=== PATIENT | male | born 1985 | race Caucasian/White ===

== ENCOUNTER 2016-12-18 13:28 | Emergency (ER) | payer MEDICARE, OTHER, MEDICAID ==
[2016-12-18] MEDS ORDERED: Sodium Chloride 0.9% 10 ML Syringe FLUSH PRN (13:39)
[2016-12-18] MEDS ORDERED: Sodium Chloride 0.9% 1,000 ML IV ONE ×2 (13:40→15:03)
--- NOTE | 2016-12-18 14:07 | EDM.PDOC ---
ED HPI GENERAL MEDICAL PROBLEM - General Chief Complaint: General Stated Complaint: Stroke Symptoms Time Seen by Provider: 12/18/16 13:38 Source of Information: Reports: Other (Patient brought in by someone moving into same building as were patient resides. Person recalls Aron laying on floor this past , two days ago. Wouldn't get up at that time. Person noticed Aron still on floor today, brought Aron in via private vehicle. No further information available. Person says he really does not know Aron or interact with him in general. ) History Limitations: Reports: Altered mental status, Intoxication (suspected drug use) - History of Present Illness INITIAL COMMENTS - FREE TEXT/NARRATIVE: Patient brought in by someone who is moving into same building as were Aron apparently resides. Says Aron was laying down in same place two days ago and apparently has not moved since then. No further information given. Aron is awake, knows he is at hospital. Otherwise patient appears to be under influence of drugs and has an altered mental status. Denies using drugs. When asked if he is having any pain he says his legs hurt. Denies any other pain. He tries to answer questions but otherwise is minimally communicative. Cannot give any additional history as to what he was doing this past week or how long he was on the floor. Patient evaluated in our ER in Oct. At that time admitted to using heroin as well as meth. Has history of MS diagnosis. Unable to verify current medications. No additional information available. Review of chart shows that patient needs to self-cath due to urinary issues related to MS. He is also on chronic narcotic medications for pain issues in addition to chronic illicit drug use. - Related Data Allergies Allergy/AdvReac Type Severity Reaction Status Date / Time Latex, Natural Rubber Allergy Rash Verified 01/20/14 15:25 venom-honey bee Allergy Anaphylactic Verified 01/20/14 15:21 [bee venom (honey bee)] Shock Home Meds: Home Meds Calcium Carbonate [Tums] 1,000 mg PO DAILY 10/25/16 [History] Citalopram Hydrobromide [Citalopram HBr] 20 mg PO DAILY 10/25/16 [History] Gabapentin [Neurontin] 800 mg PO TID 10/25/16 [History] Oxybutynin 5 mg PO BID 10/25/16 [History] oxyCODONE HCl [Oxycodone HCl] 20 mg PO TID 10/25/16 [History] Past Medical History HEENT History: Reports: Allergic rhinitis, Impaired vision, Other (see below). Denies: Hard of hearing, Retinal detachment Other HEENT History: Allergic rhinitis as a child, currently allergic to bee stings, wears glasses Cardiovascular History: Reports: None. Denies: Afib, Aneurysm, Arrhythmia, Blood clots/VTE/DVT, CAD, Heart Failure, Heart murmur, Hypertension, PVD, Syncope Respiratory History: Reports: None. Denies: Asthma, COPD, Intubation, previous , PE, Pneumothorax Gastrointestinal History: Reports: Chronic constipation, Gastritis, GERD, Other (see below). Denies: Celiac disease, Cholelithiasis, Fecal incontinence, GI bleed, Hepatitis, Hiatal hernia, Inflammatory bowel disease, Irritable bowel syndrome, Jaundice, Pancreatitis Other Gastrointestinal History: Chronic constipation secondary to chronic narcotic use, mild esophagitis, gastritis, duodenitis by EGD Genitourinary History: Reports: Retention, urinary, Urinary incontinence, UTI, recurrent, Other (see below). Denies: BPH, Chronic renal insuffiency, Renal calculus Other Genitourinary History: Chronic urinary retention requiring daily catheterizations secondary to his MS Musculoskeletal History: Reports: Arthritis, Back pain, chronic, Neck pain, chronic, Osteoarthritis, Other (see below). Denies: Amputation, Fracture, Gout , RA, SLE Other Musculoskeletal History: Chronic pain syndrome with chronic arthritis requiring chronic narcotic use, L1 vertebral body compression fracture, history of questionable left radial styloid fracture on 04/17/13 however negative x-ray report Neurological History: Reports: MS, Neuropathy, peripheral. Denies: Cerebral aneurysms, CVA, Headaches, chronic, Head trauma, Migraines, Seizure, TIA, Vertigo Psychiatric History: Reports: Addiction, Anxiety, Depression, Psych Hospitalization(s), Suicide attempt, Suicidal ideation, Other (see below). Denies: Abuse, victim of Other Psychiatric History: Chronic anxiety and depression disorder including suicidal attempt with overdose on 03/22/09 with previous multiple inpatient treatments for his anxiety depression disorder including last hospitalization at [facility] in [place] in 2013, chronic narcotic use (currently OxyContin) with additional illicit drug use and tobacco use Hematologic History: Reports: None. Denies: Anemia, Blood transfusion(s), Iron deficiency Other Hematologic History: plasma infusion 2013 Immunologic History: Reports: None. Denies: AIDS, HIV, SLE Oncologic (Cancer) History: Reports: None. Denies: Basal cell carcinoma, Hodgkin's Lymphoma, Leukemia, Malignant melanoma, Non-Hodgkin's Lymphoma, Squamous cell carcinoma Dermatologic History: Reports: None. Denies: Eczema, Psoriasis - Infectious Disease History Infectious Disease History: Reports: Chicken pox. Denies: C-difficile, Measles , Meningitis, Mononucleosis, MRSA, Mumps, Pertussis (whooping cough), Rheumatic Fever, Rubella, Scarlet fever, Shingles, TB, VRE - Past Surgical History Head Surgeries/Procedures: Reports: None HEENT Surgical History: Reports: Adenoidectomy, Myringotomy w tube(s), Oral surgery, Tonsillectomy, Other (see below). Denies: Cataract surgery, Eye surgery, Naso-sinus surgery Other HEENT Surgeries/Procedures: Tonsillectomy and adenoidectomy at about age 13-14, upper teeth extraction with current bridge him of PE tubes at about age 4 Cardiovascular Surgical History: Reports: None. Denies: Varicose, Vascular surgery Respiratory Surgical History: Reports: None. Denies: Lung Biopsies, Thoracentesis GI Surgical History: Reports: Appendectomy, EGD, Other (see below). Denies: Cholecystectomy, Colonoscopy, Hernia, abdominal, Hernia, inguinal, Hernia repair /other Other GI Surgeries/Procedures: Decision a benign lymph node from the right inguinal region on 10/15/10, appendectomy in 1997, EGD on 10/01/14 Male Surgical History: Reports: Circumcision, Other (see below). Denies: Vasectomy Other Male Surgeries/Procedures: Circumcision as an infant Endocrine Surgical History: Reports: None Neurological Surgical History: Reports: None. Denies: C-Spine, Discectomy, Laminectomy, Lumbar spine, Spinal fusion, Vertebroplasty Musculoskeletal Surgical History: Reports: None. Denies: Arthroscopic knee, Arthroscopic procedure, Carpal tunnel, Ganglion cyst, Joint replacement, ORIF, Shoulder surgery Oncologic Surgical History: Reports: None Dermatological Surgical History: Reports: None - Past Imaging History Past Imaging History: Reports: CAT scan (Abdomen and pelvis on 01/20/14), MRI ( Brain and C-spine on 01/29/14) Social & Family History - Tobacco Use Smoking Status *Q: Current Every Day Smoker Years of Tobacco use: 14 Packs/Tins Daily: 0.3 (Started chewing tobacco at age 16 with current use of 1/ 3 can per day) Used Tobacco, but Quit: No Second Hand Smoke Exposure: Yes - Caffeine Use Caffeine Use: Reports: Coffee (3 cups of coffee per day), Soda (5 sodas per day) . Denies: Energy drinks, Tea - Alcohol Use Days Per Week of Alcohol Use: 0 (DWI in 2008 however denies alcohol treatment or previous abuse) Number of Drinks Per Day: 2 (Usually mixed drinks about every 3 months) Total Drinks Per Week: 0 - Recreational Drug Use Recreational Drug Use: Yes Drug Use in Last 12 Months: Yes Recreational Drug Type: Reports: Amphetamines (Speed), Heroin (Regular heroin use since 2009 with last snorting yesterday), LSD (Acid) (X1 in 2011 when his left him), Marijuana/Hashish (Weekly marijuana use since age 16), Methamphetamine (Regular methamphetamine inhalations since 2009 with last use 2 weeks ago). 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 No: lymphadenopathy (L), lymphadenopathy (R) Respiratory/Chest: no respiratory distress, lungs clear, normal breath sounds, no accessory muscle use, chest non-tender Cardiovascular: no murmur, tachycardia, other (unble to find pulse right lower leg) Peripheral Pulses: 0: posterior tibial (R), dorsalis pedis (R), 1+: dorsalis pedis (L), 2+: radial (L), radial (R) GI/Abdominal: soft, non tender, no distention, abnormal bowel sounds: ( diminished) (Male) Exam: Other (unremarkable external inspection) Rectal (Males) Exam: Deferred Back Exam: other (No bruising/pain with palpation or skin breakdown noted) Extremities: other (both legs tender with palpation. Right leg cold, firmer to touch than left. Both had areas in popliteal fossas that were red (confluent), right side desquamated. No active draining noted. ) Neurological: inattentive, slow to respond, other (unable to move toes/foot/leg on right. Able to move left leg/toes. Equal strength and movement upper extremities. ) Psychiatric: flat affect Skin Exam: Cool, Cyanosis (right lower extremity), Erythema (behind both knees) , Other (scattered round scabs noted on exam) EKG INTERPRETATION EKG Date: 12/18/16 Time: 13:57 Rhythm: other (Sinus Tach) Rate (beats/min): 124 [place]: RAD-right axis deviation P-wave: present QRS: normal ST-T: other (slight elevation V1/V2) QT: normal Comparison: other: (EKG from early Febrary shows NSR with rate in 80s) Course - Vital Signs Last Recorded V/S: Last Vital Signs Temp 36.7 C 12/18/16 13:30 Pulse 126 H 12/18/16 14:40 Resp 22 H 12/18/16 14:40 BP 126/77 12/18/16 14:40 Pulse Ox 98 12/18/16 14:40 - Orders/Labs/Meds Labs: Laboratory Tests 12/18/16 12/18/16 12/18/16 Range/Units 13:50 14:00 14:10 WBC 25.2 H (4.0-10.2) K/uL RBC 6.44 H (4.33-5.41) M/uL Hgb 18.9 H* D (13.1-16.8) g/dL Hct 56.2 H (39.0-49.0) % MCV 87.3 (84.0-98.0) fL MCH 29.3 (28.2-33.3) pg MCHC 33.6 (31.7-36.0) g/dL RDW 15.6 H (11.2-14.1) % Plt Count 307 (150-350) K/uL Neut % (Auto) 79.1 (45.0-80.0) % Lymph % (Auto) 11.2 (10.0-50.0) % Clayton % (Auto) 9.4 (2.0-14.0) % Eos % (Auto) 0.1 (0.0-5.0) % Baso % (Auto) 0.2 (0.0-2.0) % Neut # (Auto) 19.96 H (1.40-7.00) K/uL Lymph # (Auto) 2.83 (0.50-3.50) K/uL Clayton # (Auto) 2.36 H (0.00-1.00) K/uL Eos # (Auto) 0.02 (0.00-0.50) K/uL Baso # (Auto) 0.04 (0.00-0.20) K/uL D-Dimer, Quantitative (0-400) ng/mL Sodium (136-145) mmol/L Potassium (3.5-5.1) mmol/L Chloride (98-107) mmol/L Carbon Dioxide (21.0-32.0) mmol/L BUN (7-18) mg/dL Creatinine (0.51-1.17) mg/dL Est Cr Clr Drug Dosing Estimated GFR (MDRD) mL/min Glucose (74-106) mg/dL Lactic Acid (0.4-2.0) mmol/L Calcium (8.5-10.1) mg/dL Total Bilirubin (0.2-1.0) mg/dL AST (15-37) U/L ALT (12-78) U/L Alkaline Phosphatase (46-116) IU/L Creatine Kinase (26-308) U/L Troponin I (0.000-0.056) ng/mL Total Protein (6.4-8.2) g/dL Albumin (3.4-5.0) g/dL Specimen Type Urincath Urine Color Brown Urine Appearance Cloudy Urine pH 6.0 (5.0-9.0) Ur Specific Endeavor >= 1.030 (1.005-1.030) Urine Protein >=300 H (NEGATIVE) mg/dL Urine Glucose (UA) Negative (NEGATIVE) mg/dL Urine Ketones Negative (NEGATIVE) mg/dL Urine Occult Blood Large H (NEGATIVE) Urine Nitrite Positive H (NEGATIVE) Urine Bilirubin Small H (NEGATIVE) Urine Urobilinogen 1.0 (0.2-1.0) E.U./dL Ur Leukocyte Esterase Negative (NEGATIVE) Urine RBC 0-5 /HPF Urine WBC 0-5 /HPF Ur Epithelial Cells Rare /LPF Urine Bacteria Rare (NONE TO FEW) /HPF Urine Opiates Screen Negative (NEGATIVE) Urine Methadone Screen Negative (NEGATIVE) U Acetaminophen Screen Negative (NEGATIVE) Ur Barbiturates Screen Negative (NEGATIVE) Ur Tricyclics Screen Negative (NEGATIVE) Ur Phencyclidine Scrn Negative (NEGATIVE) Ur Amphetamine Screen Positive H (NEGATIVE) U Methamphetamines Scrn Positive H (NEGATIVE) U Benzodiazepines Scrn Positive H (NEGATIVE) U Cocaine Metab Screen Negative (NEGATIVE) U Marijuana (THC) Screen Positive H (NEGATIVE) Ethyl Alcohol (0.000-0.080) g/dL 12/18/16 12/18/16 12/18/16 Range/Units 14:10 14:10 14:10 WBC (4.0-10.2) K/uL RBC (4.33-5.41) M/uL Hgb (13.1-16.8) g/dL Hct (39.0-49.0) % MCV (84.0-98.0) fL MCH (28.2-33.3) pg MCHC (31.7-36.0) g/dL RDW (11.2-14.1) % Plt Count (150-350) K/uL Neut % (Auto) (45.0-80.0) % Lymph % (Auto) (10.0-50.0) % Clayton % (Auto) (2.0-14.0) % Eos % (Auto) (0.0-5.0) % Baso % (Auto) (0.0-2.0) % Neut # (Auto) (1.40-7.00) K/uL Lymph # (Auto) (0.50-3.50) K/uL Clayton # (Auto) (0.00-1.00) K/uL Eos # (Auto) (0.00-0.50) K/uL Baso # (Auto) (0.00-0.20) K/uL D-Dimer, Quantitative (0-400) ng/mL Sodium 136 (136-145) mmol/L Potassium 6.0 H* D (3.5-5.1) mmol/L Chloride 97 L (98-107) mmol/L Carbon Dioxide 23.6 (21.0-32.0) mmol/L BUN 39 H D (7-18) mg/dL Creatinine 3.36 H* D (0.51-1.17) mg/dL Est Cr Clr Drug Dosing TNP Estimated GFR (MDRD) 22 mL/min Glucose 148 H (74-106) mg/dL Lactic Acid 4.0 H (0.4-2.0) mmol/L Calcium 8.3 L (8.5-10.1) mg/dL Total Bilirubin 0.8 (0.2-1.0) mg/dL AST 3386 H (15-37) U/L ALT 786 H (12-78) U/L Alkaline Phosphatase 72 (46-116) IU/L Creatine Kinase 264 (26-308) U/L Troponin I (0.000-0.056) ng/mL Total Protein 8.6 H (6.4-8.2) g/dL Albumin 3.8 (3.4-5.0) g/dL Specimen Type Urine Color Urine Appearance Urine pH (5.0-9.0) Ur Specific Endeavor (1.005-1.030) Urine Protein (NEGATIVE) mg/dL Urine Glucose (UA) (NEGATIVE) mg/dL Urine Ketones (NEGATIVE) mg/dL Urine Occult Blood (NEGATIVE) Urine Nitrite (NEGATIVE) Urine Bilirubin (NEGATIVE) Urine Urobilinogen (0.2-1.0) E.U./dL Ur Leukocyte Esterase (NEGATIVE) Urine RBC /HPF Urine WBC /HPF Ur Epithelial Cells /LPF Urine Bacteria (NONE TO FEW) /HPF Urine Opiates Screen (NEGATIVE) Urine Methadone Screen (NEGATIVE) U Acetaminophen Screen (NEGATIVE) Ur Barbiturates Screen (NEGATIVE) Ur Tricyclics Screen (NEGATIVE) Ur Phencyclidine Scrn (NEGATIVE) Ur Amphetamine Screen (NEGATIVE) U Methamphetamines Scrn (NEGATIVE) U Benzodiazepines Scrn (NEGATIVE) U Cocaine Metab Screen (NEGATIVE) U Marijuana (THC) Screen (NEGATIVE) Ethyl Alcohol 0.001 (0.000-0.080) g/dL 12/18/16 12/18/16 Range/Units 14:10 14:10 WBC (4.0-10.2) K/uL RBC (4.33-5.41) M/uL Hgb (13.1-16.8) g/dL Hct (39.0-49.0) % MCV (84.0-98.0) fL MCH (28.2-33.3) pg MCHC (31.7-36.0) g/dL RDW (11.2-14.1) % Plt Count (150-350) K/uL Neut % (Auto) (45.0-80.0) % Lymph % (Auto) (10.0-50.0) % Clayton % (Auto) (2.0-14.0) % Eos % (Auto) (0.0-5.0) % Baso % (Auto) (0.0-2.0) % Neut # (Auto) (1.40-7.00) K/uL Lymph # (Auto) (0.50-3.50) K/uL Clayton # (Auto) (0.00-1.00) K/uL Eos # (Auto) (0.00-0.50) K/uL Baso # (Auto) (0.00-0.20) K/uL D-Dimer, Quantitative > 5000 H (0-400) ng/mL Sodium (136-145) mmol/L Potassium (3.5-5.1) mmol/L Chloride (98-107) mmol/L Carbon Dioxide (21.0-32.0) mmol/L BUN (7-18) mg/dL Creatinine (0.51-1.17) mg/dL Est Cr Clr Drug Dosing Estimated GFR (MDRD) mL/min Glucose (74-106) mg/dL Lactic Acid (0.4-2.0) mmol/L Calcium (8.5-10.1) mg/dL Total Bilirubin (0.2-1.0) mg/dL AST (15-37) U/L ALT (12-78) U/L Alkaline Phosphatase (46-116) IU/L Creatine Kinase (26-308) U/L Troponin I 0.045 (0.000-0.056) ng/mL Total Protein (6.4-8.2) g/dL Albumin (3.4-5.0) g/dL Specimen Type Urine Color Urine Appearance Urine pH (5.0-9.0) Ur Specific Endeavor (1.005-1.030) Urine Protein (NEGATIVE) mg/dL Urine Glucose (UA) (NEGATIVE) mg/dL Urine Ketones (NEGATIVE) mg/dL Urine Occult Blood (NEGATIVE) Urine Nitrite (NEGATIVE) Urine Bilirubin (NEGATIVE) Urine Urobilinogen (0.2-1.0) E.U./dL Ur Leukocyte Esterase (NEGATIVE) Urine RBC /HPF Urine WBC /HPF Ur Epithelial Cells /LPF Urine Bacteria (NONE TO FEW) /HPF Urine Opiates Screen (NEGATIVE) Urine Methadone Screen (NEGATIVE) U Acetaminophen Screen (NEGATIVE) Ur Barbiturates Screen (NEGATIVE) Ur Tricyclics Screen (NEGATIVE) Ur Phencyclidine Scrn (NEGATIVE) Ur Amphetamine Screen (NEGATIVE) U Methamphetamines Scrn (NEGATIVE) U Benzodiazepines Scrn (NEGATIVE) U Cocaine Metab Screen (NEGATIVE) U Marijuana (THC) Screen (NEGATIVE) Ethyl Alcohol (0.000-0.080) g/dL Meds: Medications Discontinued Medications Generic Name Dose Route Start Last Admin Trade Name Freq PRN Reason Stop Dose Admin Sodium Chloride 1,000 mls @ 999 mls/hr 12/18/16 13:40 12/18/16 14:10 Normal Saline IV 12/18/16 14:40 999 mls/hr .BOLUS ONE Administration Sodium Chloride 1,000 mls @ 500 mls/hr 12/18/16 15:03 Normal Saline IV 12/18/16 17:02 .BOLUS ONE Sodium Chloride 10 ml 12/18/16 13:39 Saline Flush FLUSH ASDIRECTED PRN Keep Vein Open Sodium Polystyrene Sulfonate 15 gm 12/18/16 14:27 12/18/16 14:30 Kayexalate PO 12/18/16 14:28 15 gm ONETIME ONE Administration - Radiology Interpretation Free Text/Narrative:: Unremarkable for acute bleed/changes CT Results Date: 12/18/16 CT Results Time: 14:00 - Re-Assessments/Exams Free Text/Narrative Re-Assessment/Exam: 12/18/16 14:31 + Amphetamines, methamphetamine, THC, benzos. Elevated Hgb/WBC. Darkened urine suggesting myoglobinuria. IV bolus given for dehydration. Large areas of redness behind both knees suggest possible cellulitis. Call placed to [facility] to transfer patient for additional evaluation/care which will include US study to rule out DVT right leg. [facility] accepted patient. Discussed giving antibiotic but current plan will be for antibiotic therapy to be initiated at [facility]. Patient stable. Trying to cooperate with exam and nursing requests. Will transport by ground ambulance to [facility] via ALS. Kayexalate given. Free Text/Narrative Re-Assessment/Exam: 12/18/16 15:00 Lactic acid = 4 DDimer greater than 5000 Departure - Departure Time of Disposition: 14:45 Disposition: DC/Tfer to Acute Hospital 02 Clinical Impression: Methamphetamine abuse, Swelling of right lower extremity, Skin lesions, generalized, Elevated d-dimer Altered mental status, unspecified Qualifiers: Altered mental status type: unspecified Qualified Code(s): R41.82 - Altered mental status, unspecified Referrals: PCP,Unobtain [Ordering Only Provider] - Forms: ED Department Discharge
[2016-12-18] MEDS ORDERED: Sodium Polystyrene Sulfonate 15 GM/60 ML Susp 60 ML Bot PO ONE (14:27)
[2016-12-18 14:43] LABS: CHLORIDE,CL 97 mmol/L (98-107); SODIUM,NA 136 mmol/L (136-145)
[2016-12-18 16:14] VITALS: BP 126/77
== END 2016-12-18 14:44 ==
LOC: LL.ED 13:28
DX: R41.82 Altered mental status, unspecified (principal); F15.10 Other stimulant abuse, uncomplicated; R22.9 Localized swelling, mass and lump, unspecified; L98.9 Disorder of the skin and subcutaneous tissue, unspecified; R79.1 Abnormal coagulation profile; K21.9 Gastro-esophageal reflux disease without esophagitis; F17.210 Nicotine dependence, cigarettes, uncomplicated; Z79.899 Other long term (current) drug therapy
CPT/HCPCS: 36415; 51702; 70450; 80053; 80305; 81001; 82550; 83605; 84484; 85025; 85379; 87040; 93005; 96360; 99291; A9270; G0480; J7030; 99284